=== PATIENT | female | born 1970 | race Caucasian/White ===

== ENCOUNTER 2018-07-07 06:28 | Day surgery (SDC) | payer OTHER ==
[2018-07-01 09:34] VITALS: BMI 23.3
[~2018-07-07 06:28] MED LIST: methylPREDNISolone ACET (DEPO) 40 MG/1 ML VIAL IM ONE
[2018-07-07] MEDS ORDERED: oxyCODONE HCL 10 MG SUSTAINED ACTING TABLET PO STA (06:50)
[2018-07-07] MEDS ORDERED: oxyCODONE HCL 10 MG SUSTAINED ACTING TABLET ONE (06:59)
[2018-07-07] MEDS ORDERED: GUM MASTIC/STORAX/MSAL/ALCOHOL 1 DRP DROPSBTL MC ONE (07:04)
[2018-07-07] MEDS ORDERED: methylPREDNISolone ACET (DEPO) 40 MG/1 ML VIAL ONE (07:04)
[2018-07-07] MEDS ORDERED: THROMBIN (RECOMBINANT) 5,000 UNIT VIAL TP ONE (07:04)
[2018-07-07] MEDS ORDERED: BUPIVACAINE HCL/PF 2.5 MG/ML - 30 ML VIAL IJ ONE ×2 (07:04→08:47)
[2018-07-07] MEDS ORDERED: LIDOCAINE 1%/EPI 1:100000 (20 ML MULTI DOSE VIAL) ONE (07:04)
--- NOTE | 2018-07-07 07:23 | HP ---
History & Physical Update - History History: No Change - Physical Physical: No Change - Assessment Assessment: No Change - Plan Plan: No Change (Initial H&P is located in patient's paper chart. Completed on 07/06/18. Complete and accurate. No new problems or medications.)
[2018-07-07] MEDS ORDERED: DEXAMETHASONE SOD PHOSPHATE/PF 10 MG/ML SDV ONE (08:46)
[2018-07-07] MEDS ORDERED: MIDAZOLAM HCL 2 MG/2 ML SINGLE DOSE VIAL ONE (08:46)
[2018-07-07] MEDS ORDERED: PROPOFOL 20 ML ONE (09:07)
[2018-07-07] MEDS ORDERED: SUCCINYLCHOLINE CHLORIDE 200 MG/10 ML VIAL ONE (09:07)
[2018-07-07] MEDS ORDERED: ceFAZolin SODIUM 1 GM VIAL ONE (09:22)
[2018-07-07] MEDS ORDERED: LIDOCAINE 1%/EPI 1:100000 (50 ML MULTI DOSE VIAL) INF ONE (09:30)
[2018-07-07] MEDS ORDERED: THROMBIN (BOVINE) 5,000 UNIT VIAL TP ONE (09:50)
[2018-07-07] MEDS ORDERED: GELATIN SPONGE,ABSORBABLE 1 GM PACKET TP ONE (09:52)
[2018-07-07] MEDS ORDERED: BUPIVACAINE HCL/PF 0.25% (2.5MG/ML) 10 ML VIAL IJ ONE (09:53)
[2018-07-07] MEDS ORDERED: DEXAMETHASONE SOD PHOSPHATE 4 MG/1 ML VIAL ONE (09:54)
[2018-07-07] MEDS ORDERED: ONDANSETRON 4 MG/2 ML VIAL ONE (09:54)
[2018-07-07] MEDS ORDERED: methylPREDNISolone ACET (DEPO) 40 MG/1 ML VIAL IM ONE (10:32)
--- NOTE | 2018-07-07 11:05 | OP ---
Operative Note - Note: Operative Date: 07/07/18 Pre-Operative Diagnosis: L4/5 HNP with radiculopathy Operation: L4/5 bilateral laminectomy with discectomy Post-Operative Diagnosis: Same as Pre-op Surgeon: Arturo Stewart [employer] Fusion Middleware Developer: Edward Shah Anesthesiologist/GOVERNMENT PROPERTY INSPECTOR: Leann Lyon Anesthesia: Spinal Specimens Removed: Right L4/5 discectomy Estimated Blood Loss (mls): 10 Fluid Volume Replaced (mls): 900 Operative Report Dictated: Yes
--- NOTE | 2018-07-07 11:07 | SURG ---
Surgery Mobility Scooter Repairer Note Mobility Scooter Repairer: Edward Shah PA-C Date of Service: 07/07/18 Diagnosis: L4/5 herniated disc with radiculopathy Procedure: L4/5 bilateral laminectomy with discectomy I was present for the entirety of the operative procedure. For further detail, please refer to operative report. Visit type - Case Type Case Type: Scheduled - New patient This patient is new to me today: Yes Date on this admission: 07/07/18
[2018-07-07] MEDS ORDERED: oxyCODONE HCL 5 MG TABLET PO PRN ×2 (11:51)
[2018-07-07] MEDS ORDERED: ONDANSETRON 4 MG/2 ML VIAL IVPUSH PRN (11:51)
[2018-07-07] MEDS ORDERED: LACTATED RINGERS SOLUTION 1,000 ML IV SCH (12:00)
[2018-07-07 12:12] VITALS: TEMP 98
[2018-07-07 14:01] VITALS: BP 98/72; PULSE 88
--- NOTE | 2018-07-08 07:26 | OP ---
DATE OF OPERATION: 07/07/2018 PREOPERATIVE DIAGNOSIS: L4-L5 spinal stenosis.. POSTOPERATIVE DIAGNOSIS: L4-L5 spinal stenosis. PROCEDURE PERFORMED: Laminectomy, L4-L5. SURGEON: Arturo Stewart MD ENERGY MANAGER: KARYNA Leblanc ESTIMATED BLOOD LOSS: 50 mL. INTRAVENOUS FLUIDS: Per Anesthesia. ANESTHESIA: Spinal/erector spinae block. COMPLICATIONS: There were none. DISPOSITION: Patient brought to the PACU in stable condition. INDICATIONS FOR SURGERY: The patient is a 47-year-old female who has been suffering from pain from her back down her leg. X-rays and MRI were completed, which noted that she had spinal stenosis at L4-L5. She had gone through an exhaustive course of treatment for this which included medications, physical therapy, as well as injections. Unfortunately, her pain continued to persist despite all this. At this point, risks, benefits, and alternatives were discussed, and the patient consented to surgery. OPERATIVE NOTE: Patient was brought to the operating room by the Anesthesia staff. After appropriate patient identification was performed, spinal anesthesia was given along with an erector spinae block. The patient was positioned prone onto the OR table with all areas of bony prominences well padded. At this time, 2 needles were placed into her back to andrea off the L4-L5 level. An x-ray was taken to confirm the needles track. The needle was removed, and 10 mL of lidocaine with epinephrine was injected into her back at this time. Her back was prepped and draped in a sterile manner. At this point, a time-out was completed. An incision was made from the top of L4 down to the bottom of L5. Dissection was carried down to the fascia. Fascia was split open at this time, and appropriate retractor was then placed in. A spinal needle was placed onto the L4 lamina to andrea off the L4-L5 space. An x-ray was taken to confirm this was correct. The needle was removed, and the microscope was brought in. The interspinous ligament at L4-L5 was removed. Portions of the L4-L5 lamina were removed. The segment was identified, it was removed. The thecal sac was mobilized medially, and a disc herniation was noted, it was removed. Portions of the inferior and superior facets were removed. By the end of the procedure, both the L5 nerve roots appeared to be well decompressed. All bleeding was well controlled at this time. Steroids were placed over the nerve root. Floseal was placed over that. The fascia was closed with a No. 1 Vicryl suture. The subcutaneous tissues were closed with 2-0 Vicryl suture. Skin was closed with 3-0 Monocryl suture. Dermabond was applied. Steri-Strips were applied, and sterile dressings applied. Patient was placed supine in the OR bed and brought to the PACU in stable condition. Kusum KYLE/[id number]
--- NOTE | 2018-07-12 15:21 | PATH ---
Surgical Pathology Report Patient Name: LAYNE AVILA Med. Rec. #: [id number] /Age/Gender: 1970 (Age: 47) / F Account: [id number] Location: [facility] Taken: 07/07/2018 Received: 07/07/2018 Reported: 07/12/2018 Physicians: Arturo Stewart M.D. Specimen(s) Received L4-5 DISC Clinical History Spinal stenosis Final Diagnosis L4-5 DISC, LAMINECTOMY: CARTILAGE WITH DEGENERATIVE CHANGES. Electronically Signed Christine Yadav M.D. Gross Description Received in formalin labeled "L4-5 disc," is a 3.3 x 2.8 x 0.4 cm aggregate of adan fragments of fibrocartilaginous tissue. A claim service representative portion is submitted in one cassette. 07/07/201807/07/2018
== END 2018-07-07 13:30 | disposition home or self-care (01) ==
LOC: FASU 06:28
PROVIDERS: ATTEND Orthopaedic Surgery Orthopaedic Surgery of the Spine
PROC: 01NB0ZZ Release Lumbar Nerve, Open Approach (ICD-10-PCS; principal; 2018-07-07 08:30)
DX: M48.061 Spinal stenosis, lumbar region without neurogenic claudication (principal)
CPT/HCPCS: 72100-TC-FY; 84703; 88304-TC; 94760